=== PATIENT | female | born 1960 | race Caucasian/White ===

== ENCOUNTER 2017-05-14 09:01 | Emergency (ER) | payer BC ==
--- NOTE | 2017-05-14 09:28 | ED ---
Abdominal Pain/Female - HPI Summary HPI Summary: Patient presents to the ED with CC of left sided flank pain since last evening. She states the pain is stabbing and intermittent. At its worse, /. Currently in no pain. She was sent here by [facility]. She denies any urinary symptoms, abdominal pain or groin pain, fevers, sweats or chills. Pain is not better with positioning or rest. Eating and drinking OK. Last BM yesterday morning and normal consistency and color. She has never had this pain before and denies any previous or acute back injury. She denies any midline tenderness to the back or neck pain. Denies abdominal surgeries. PMHx includes HTN and GERD for which she takes medications daily. Patient is a non- smoker and lives with family. VS stable on arrival. Currently in NAD and is not wanting medications for relief. - History of Current Complaint Chief Complaint: EDBackInjuryPain Stated Complaint: LT SIDE FLANK PAIN Time Seen by Provider: 05/14/17 09:11 Hx Obtained From: Patient ?: No Onset/Duration: Sudden Onset Timing: Minutes Severity Initially: Moderate Severity Currently: Moderate Pain Intensity: 8 Pain Scale Used: 0-10 Numeric Location: Flank Character: Sharp Aggravating Factor(s): Nothing Alleviating Factor(s): Nothing Associated Signs and Symptoms: Positive: Negative - Risk Factors Ectopic Risk Factor: Negative Ovarian Torsion Risk Factor: Reproductive Age Allergies/Adverse Reactions: Allergies Allergy/AdvReac Type Severity Reaction Status Date / Time No Known Allergies Allergy Verified 05/23/13 07:25 PMH/Surg Hx/FS Hx/Imm Hx Previously Healthy: Yes Endocrine/Hematology History: Denies: Hx Diabetes Cardiovascular History: Reports: Hx Hypertension Denies: Hx Congestive Heart Failure Respiratory History: Reports: Hx Sleep Apnea - Current CPAP user. GI History: Reports: Hx Gastroesophageal Reflux Disease History: Denies: Hx Renal Disease - Surgical History Surgery Procedure, Year, and Place: C sections; bilat carpal tunnel - Immunization History Date of Tetanus Vaccine: up to date Date of Influenza Vaccine: 2012 Hx Pertussis Vaccination: No Immunizations Up to Date: Unable to Obtain/Confirm Infectious Disease History: Denies: History Other Infectious Disease, Traveled Outside the [place] in Last 30 Days - Social History Occupation: Employed Full-time Lives: With Family Alcohol Use: None Hx Substance Use: No Substance Use Type: Reports: None Hx Tobacco Use: No Smoking Status (MU): Never Smoked Tobacco Do You Chew or Dip Tobacco: No Have You Chewed or Dipped Tobacco in the LAST YEAR: No Have You Smoked in the Last Year: No Review of Systems Constitutional: Negative Eyes: Negative Cardiovascular: Negative Gastrointestinal: Negative Positive: see HPI, flank pain Positive: Arthralgia - left sided flank pain Neurological: Negative Psychological: Normal All Other Systems Reviewed And Are Negative: Yes Physical Exam Triage Information Reviewed: Yes Vital Signs On Initial Exam: Initial Vitals Temp Pulse Resp BP Pulse Ox 98.4 F 66 16 141/87 100 05/14/17 09:03 05/14/17 09:03 05/14/17 09:03 05/14/17 09:03 05/14/17 09:03 Vital Signs Reviewed: Yes Appearance: Positive: Well-Appearing, No Pain Distress, Well-Nourished Skin: Positive: Warm, Skin Color Reflects Adequate Perfusion Head/Face: Positive: Normal Head/Face Inspection Eyes: Positive: EOMI, TIFFANIE, Conjunctiva Clear Neck: Positive: Supple, Nontender, No Lymphadenopathy Respiratory/Lung Sounds: Positive: Clear to Auscultation, Breath Sounds Present Cardiovascular: Positive: Normal, RRR, Pulses are Symmetrical in both Upper and Lower Extremities Abdomen Description: Positive: Nontender, No Organomegaly, Soft, Other:. Negative: CVA Tenderness (R), CVA Tenderness (L), Distended, Guarding, McBurney' s Point Tenderness, Splenomegaly Bowel Sounds: Positive: Present Musculoskeletal: Positive: Normal, Strength/ROM Intact Neurological: Positive: Speech Normal Psychiatric: Positive: Normal AVPU Assessment: Alert Diagnostics - Vital Signs Vital Signs Temp Pulse Resp BP Pulse Ox 05/14/17 09:03 98.4 F 66 16 141/87 100 - Laboratory Result Diagrams: 05/14/17 09:45 05/14/17 09:45 Lab Statement: Any lab studies that have been ordered have been reviewed, and results considered in the medical decision making process. Abdominal Pain Fem Course/Dx - Course Course Of Treatment: Patient evaluated for possible stone. She is sent from [address] [place] [address] d/t pain and abnormal UA with leuks and WBC. Stable condition on arrival and in NAD. VS stable. Pain began last evening, is intermittent lasting seconds to minutes and not better with positioning. UA shows no leuks or WBC or RBC at ED. CT results: IMPRESSION: 1. NO EVIDENCE FOR ACUTE FINDING OR CAUSE FOR THE PATIENT'S ABDOMINAL PAIN IS SEEN. 2. HEPATOMEGALY AND HEPATIC STEATOSIS. no kidney stone identified, however pain is not worse or better with positioning. Considered muscular pain, but d/t abnormal UA and left sided back pain - CT obtained. Discussed treatment options. Provider explained this could be muscular d/t no acute findings on CT. Patient agrees and will trial a period of rest, moist heat, ibuprofen and low dose muscle relaxers as needed. Medications were reveiwed with patient. Encouarged to follow up with PCP or return to ED for worsening symptoms. Return precautions given. Patient understands and agrees with plan. Ok for discharge. - Diagnoses Differential Diagnosis: Positive: Constipation, Diverticulitis, Renal Colic Provider Diagnoses: Muscle cramp Discharge - Discharge Plan Condition: Stable Disposition: HOME Prescriptions: Cyclobenzaprine TAB* [Flexeril TAB*] 10 mg PO BID PRN #10 tab MDD 2 PRN Reason: Spasms Patient Education Materials: Muscle Spasm (ED) Referrals: Valentine Palma MD [Primary Care Provider] - Additional Instructions: Dx. Muscle Strain/ muscle spasms Flexeril: This medication is a muscle relaxant and can help relieve muscle spasms, muscle strain, or pain sensations. Flexeril can cause side effects that may impair your thinking or reactions. Be careful if you drive or do anything that requires you to be awake and alert. Avoid drinking alcohol, which can increase some of the side effects of Flexeril. Ibuprofen 600mg three times daily with meals for discomfort. Return to ED if symptoms worsen or fail to improve, notice worsening swelling, warmth or redness around the joint, develop fever, or pain is uncontrolled with OTC medications. Moist heat to the area for comfort. Warm showers or baths may improve symptoms. It is important to remain mobile as tolerated to prevent stiffening of the joints and delay healing. Follow up with your PCP. If symptoms remain for > 6 weeks, please seek special medical attention from an orthopedic physician.
[2017-05-14 09:59] LABS: Hematocrit 42 % (35-47); Hemoglobin 14.5 g/dl (12.0-16.0); Mean Corpuscular HGB Conc 34 g/dl (31-36); Mean Corpuscular Hemoglobin 32 pg (27-31); Mean Corpuscular Volume 92 fL (80-97); Mean Platelet Volume 9 um3 (7.4-10.4); Red Blood Count 4.59 10^6/ul (4.0-5.4); Red Cell Distribution Width 14 % (10.5-15); White Blood Count 7.5 10^3/ul (3.5-10.8)
[2017-05-14 10:02] LABS: Urine Bilirubin Negative (Negative); Urine Glucose Negative (Negative); Urine Nitrite Negative (Negative)
--- NOTE | 2017-05-14 10:03 | RAD ---
INDICATION: Left-sided flank pain. COMPARISON: There are no prior studies available for comparison. TECHNIQUE: A CT scan of the abdomen and pelvis was performed without intravenous or oral contrast. Contiguous axial sections were obtained from the lung bases through the symphysis pubis. Images were reconstructed in the coronal and sagittal planes. FINDINGS: The lung bases are clear. No pleural effusion is present. The liver is moderately enlarged and decreased in attenuation consistent with fatty infiltration. There is mild sparing along the inferior aspect of the right hepatic lobe. No significant focal abnormality is seen on this noncontrast study. No calcified gallstones are seen. The spleen is within normal limits. The pancreas appears to be within normal limits. The adrenal glands and kidneys are normal in size. No renal calculi or hydronephrosis is seen. No ureteral or bladder calculi are seen. The aorta is normal in caliber with mild calcific plaque present. No significant enlarged retroperitoneal lymph nodes are seen. The stomach, small and large bowel appear nondistended. The appendix is within normal limits. There is mild descending and sigmoid diverticulosis without evidence for diverticulitis. There is a small periumbilical hernia containing fat. The uterus is anteverted and normal in size. No free intraperitoneal air or fluid is seen. No significant focal osseous abnormality is seen. IMPRESSION: 1. NO EVIDENCE FOR ACUTE FINDING OR CAUSE FOR THE PATIENT'S ABDOMINAL PAIN IS SEEN. 2. HEPATOMEGALY AND HEPATIC STEATOSIS.
[2017-05-14 10:21] LABS: Albumin 4.5 g/dL (3.2-5.2); C Reactive Protein 4.17 mg/L (< 5.00); EGFR African American 120.8 (>60); Globulin 2.5 g/dL (2-4); Potassium 3.7 mmol/L (3.5-5.0); Total Bilirubin 0.6 mg/dL (0.2-1.0)
[2017-05-14 10:49] VITALS: BP 139/86
== END 2017-05-14 10:48 | disposition home or self-care (01) ==
LOC: ED 09:01
DX: R25.2 Cramp and spasm (principal); R10.84 Generalized abdominal pain
CPT/HCPCS: 36415; 74176; 80053; 81003; 83690; 85025; 86140; 99282

== ENCOUNTER 2017-11-27 10:16 | Observation (INO) | payer BC ==
[2017-11-27] MEDS ORDERED: Aspirin Low Dose CHEW TAB* 81 MG PO ONE (10:37)
[2017-11-27] MEDS ORDERED: Nitroglycerin TAB 0.4 MG* 0.4 MG TAB ONE (10:37)
[2017-11-27] MEDS ORDERED: Nitroglycerin TAB 0.4 MG* 0.4 MG TAB SL ONE (10:37)
[2017-11-27] MEDS ORDERED: Aspirin Low Dose CHEW TAB* 81 MG ONE (10:37)
[2017-11-27] MEDS: Metoprolol Tartrate TAB* 25 MG PO ONE ×2 (10:48→10:49)
[2017-11-27 11:04] LABS: Urine Appearance Clear; Urine Blood Negative (Negative); Urine Color Straw; Urine Ketones Negative (Negative); Urine Protein Negative (Negative); Urine Specific Gravity 1.003 (1.010-1.030); Urine Urobilinogen Negative (Negative)
[2017-11-27 11:05] LABS: ABS Basophils 0 10^3/ul (0-0.2); ABS Eosinophils 0.1 10^3/ul (0-0.6); ABS Lymphocytes 1.6 10^3/ul (1.0-4.8); ABS Monocytes 0.5 10^3/ul (0-0.8); ABS Neutrophils 5.1 10^3/ul (1.5-7.7); ABS Nucleated RBC 0 10^3/ul; Hematocrit 41 % (35-47); Hemoglobin 14.1 g/dl (12.0-16.0); Lymphocyte % 22.1 % (25-47); Mean Corpuscular HGB Conc 35 g/dl (31-36); Mean Corpuscular Hemoglobin 31 pg (27-31); Mean Corpuscular Volume 90 fL (80-97); Mean Platelet Volume 9 um3 (7.4-10.4); Nucleated Red Blood Cells % 0.1; Platelet Count 254 10^3/ul (150-450); Red Blood Count 4.55 10^6/ul (4.0-5.4); Red Cell Distribution Width 14 % (10.5-15); White Blood Count 7.3 10^3/ul (3.5-10.8)
--- NOTE | 2017-11-27 11:14 | RAD ---
HISTORY: Chest pain COMPARISONS: None VIEWS: 1: frontal portable view of the chest at 11:02 AM FINDINGS: LINES AND TUBES: None. CARDIOMEDIASTINAL SILHOUETTE: The cardiomediastinal silhouette is normal for portable technique. PLEURA: The costophrenic angles are sharp. No pleural abnormalities are noted. LUNG PARENCHYMA: The lungs are clear. ABDOMEN: The upper abdomen is clear. There is no subphrenic gas. BONES AND SOFT TISSUES: No bone or soft tissue abnormalities are noted. IMPRESSION: NO ACTIVE CARDIOPULMONARY DISEASE.
[2017-11-27 11:21] LABS: EGFR Non-African American 86.2 (>60)
[2017-11-27] MEDS ORDERED: Al Hydrox/Mg Hydrox/Simet LIQ* 30 ML UDC PO ONE (12:25)
[2017-11-27] MEDS ORDERED: Lidocaine 2% VISCOUS* 15 ML UDC PO ONE (12:25)
[2017-11-27] MEDS ORDERED: Nitroglycerin 2% OINT* 1 GM PAK ONE (12:30)
[2017-11-27] MEDS ORDERED: Heparin DRIP 25,000 UNITS(*) 25,000 UNITS/500 ML BAG IVPB SCH (12:30)
[2017-11-27] MEDS: Nitroglycerin 2% OINT* 1 GM PAK TOPICAL SCH ×2 (12:33→14:38)
--- NOTE | 2017-11-27 12:33 | ED ---
Marta Faust Gabriel, scribed for Ashish Ansari MD on 11/27/17 at 1039 . HPI Chest Pain - HPI Summary HPI Summary: This patient is a 57 year old F presenting to [facility] accompanied by her with a chief complaint of chest pressure since yesterday afternoon while at rest. The patient rates the intermittent pain 4/10 in severity. Patient reports SOB. Pt states she has had similar symptoms with her GERD.Hx HLD and HTN. - History of Current Complaint Chief Complaint: EDChestPainROMI Time Seen by Provider: 11/27/17 10:29 Hx Obtained From: Patient Onset/Duration: Started Days Ago - 1, Still Present Timing: Constant Initial Severity: Mild Current Severity: Mild Pain Intensity: 4 Pain Scale Used: 0-10 Numeric Chest Pain Location: Diffuse Chest Pain Radiates: No Character: Pressure/Squeezing Associated Signs and Symptoms: Positive: Other: - SOB - Allergy/Home Medications Allergies/Adverse Reactions: Allergies Allergy/AdvReac Type Severity Reaction Status Date / Time No Known Allergies Allergy Verified 11/27/17 10:26 Home Medications: Home Medications Calcium/Magnesium/Zinc [Calcium/Magnesium/Zinc] 1 tab PO BID 11/27/17 [History Confirmed 11/27/17] Iron 18 mg PO DAILY 11/27/17 [History Confirmed 11/27/17] LoraTADine TAB(NF) [Claritin 10 MG TAB(NF)] 10 mg PO DAILY 11/27/17 [History Confirmed 11/27/17] Multivitamins/Minerals TAB* [Theragran/minerals TAB*] 1 tab PO DAILY 11/27/17 [ History Confirmed 11/27/17] Rosuvastatin (NF) [Crestor (NF)] 5 mg PO DAILY 11/27/17 [History Confirmed 11/27] PMH/Surg Hx/FS Hx/Imm Hx Endocrine/Hematology History: Denies: Hx Diabetes Cardiovascular History: Reports: Hx Hypercholesterolemia, Hx Hypertension Denies: Hx Congestive Heart Failure Respiratory History: Reports: Hx Sleep Apnea - Current CPAP user. GI History: Reports: Hx Gastroesophageal Reflux Disease History: Denies: Hx Renal Disease - Surgical History Surgery Procedure, Year, and Place: C sections; bilat carpal tunnel - Immunization History Date of Tetanus Vaccine: up to date Date of Influenza Vaccine: 2012 Infectious Disease History: No Infectious Disease History: Denies: History Other Infectious Disease, Traveled Outside the [place] in Last 30 Days - Family History Known Family History: Negative: Cardiac Disease, Hypertension, Diabetes - Social History Lives: With Family Alcohol Use: None Hx Substance Use: No Substance Use Type: Reports: None Hx Tobacco Use: No Smoking Status (MU): Never Smoked Tobacco Have You Smoked in the Last Year: No Review of Systems Positive: Chest Pain Positive: Shortness Of Breath All Other Systems Reviewed And Are Negative: Yes Physical Exam - Summary Physical Exam Summary: VITAL SIGNS: Reviewed. GENERAL: Patient is a well-developed and nourished female who is lying comfortable in the stretcher. Patient is not in any acute respiratory distress. HEAD AND FACE: No signs of trauma. No ecchymosis, hematomas or skull depressions. No sinus tenderness. EYES: PERRLA, EOMI x 2, No injected conjunctiva, no nystagmus. EARS: Hearing grossly intact. Ear canals and tympanic membranes are within normal limits. MOUTH: Oropharynx within normal limits. NECK: Supple, trachea is midline, no adenopathy, no JVD, no carotid bruit, no c- spine tenderness, neck with full ROM. CHEST: Symmetric, no tenderness at palpation LUNGS: Clear to auscultation bilaterally. No wheezing or crackles. CVS: Regular rate and rhythm, S1 and S2 present, no murmurs or gallops appreciated. ABDOMEN: Soft, non-tender. No signs of distention. No rebound no guarding, and no masses palpated. Bowel sounds are normal. EXTREMITIES: FROM in all major joints, no edema, no cyanosis or clubbing. NEURO: Alert and oriented x 3. No acute neurological deficits. Speech is normal and follows commands. SKIN: Dry and warm Triage Information Reviewed: Yes Vital Signs On Initial Exam: Initial Vitals Temp Pulse Resp BP Pulse Ox 99.4 F 103 16 152/92 98 11/27/17 10:20 11/27/17 10:20 11/27/17 10:20 11/27/17 10:20 11/27/17 10:20 Vital Signs Reviewed: Yes Diagnostics - Vital Signs Vital Signs Temp Pulse Resp BP Pulse Ox 11/27/17 10:20 99.4 F 103 16 152/92 98 - Laboratory Lab Results: Lab Results 03/10/18 03/10/18 03/10/18 Range/Units 10:42 10:42 10:42 WBC (3.5-10.8) 10^3/ul RBC (4.0-5.4) 10^6/ul Hgb (12.0-16.0) g/dl Hct (35-47) % MCV (80-97) fL MCH (27-31) pg MCHC (31-36) g/dl RDW (10.5-15) % Plt Count (150-450) 10^3/ul MPV (7.4-10.4) um3 Neut % (Auto) (38-83) % Lymph % (Auto) (25-47) % [place] % (Auto) (0-7) % Eos % (Auto) (0-6) % Baso % (Auto) (0-2) % Absolute Neuts (auto) (1.5-7.7) 10^3/ul Absolute Lymphs (auto) (1.0-4.8) 10^3/ul Absolute Monos (auto) (0-0.8) 10^3/ul Absolute Eos (auto) (0-0.6) 10^3/ul Absolute Basos (auto) (0-0.2) 10^3/ul Absolute Nucleated RBC 10^3/ul Nucleated RBC % Sodium Pending Potassium 3.6 (3.5-5.0) mmol/L Chloride 101 (101-111) mmol/L Carbon Dioxide 27 (22-32) mmol/L Anion Gap Pending BUN 9 (6-24) mg/dL Creatinine 0.70 (0.51-0.95) mg/dL Est GFR ( Amer) 110.9 (>60) Est GFR (Non-Af Amer) 86.2 (>60) BUN/Creatinine Ratio 12.9 (8-20) Glucose 172 H (70-100) mg/dL Calcium 9.9 (8.6-10.3) mg/dL Magnesium 2.1 (1.9-2.7) mg/dL Total Bilirubin 0.60 (0.2-1.0) mg/dL AST 19 (13-39) U/L ALT 29 (7-52) U/L Alkaline Phosphatase 66 (34-104) U/L Total Creatine Kinase 66 (10-223) U/L CK-MB (CK-2) 1.5 (0.6-6.3) ng/mL Myoglobin 18.3 (14.3-65.8) ng/mL Troponin I 0.00 (<0.04) ng/mL B-Natriuretic Peptide 25 ( - 100) pg/mL Total Protein 6.9 (6.4-8.9) g/dL Albumin 4.5 (3.2-5.2) g/dL Globulin 2.4 (2-4) g/dL Albumin/Globulin Ratio 1.9 (1-3) TSH 1.31 (0.34-5.60) mcIU/mL Urine Color Straw Urine Appearance Clear Urine pH 6.0 (5-9) Ur Specific [place] 1.003 L (1.010-1.030) Urine Protein Negative (Negative) Urine Ketones Negative (Negative) Urine Blood Negative (Negative) Urine Nitrate Negative (Negative) Urine Bilirubin Negative (Negative) Urine Urobilinogen Negative (Negative) Ur Leukocyte Esterase Negative (Negative) Urine Glucose Negative (Negative) 11/27/17 Range/Units 10:42 WBC 7.3 (3.5-10.8) 10^3/ul RBC 4.55 (4.0-5.4) 10^6/ul Hgb 14.1 (12.0-16.0) g/dl Hct 41 (35-47) % MCV 90 (80-97) fL MCH 31 (27-31) pg MCHC 35 (31-36) g/dl RDW 14 (10.5-15) % Plt Count 254 (150-450) 10^3/ul MPV 9 (7.4-10.4) um3 Neut % (Auto) 69.3 (38-83) % Lymph % (Auto) 22.1 L (25-47) % [place] % (Auto) 7.1 H (0-7) % Eos % (Auto) 1.0 (0-6) % Baso % (Auto) 0.5 (0-2) % Absolute Neuts (auto) 5.1 (1.5-7.7) 10^3/ul Absolute Lymphs (auto) 1.6 (1.0-4.8) 10^3/ul Absolute Monos (auto) 0.5 (0-0.8) 10^3/ul Absolute Eos (auto) 0.1 (0-0.6) 10^3/ul Absolute Basos (auto) 0 (0-0.2) 10^3/ul Absolute Nucleated RBC 0 10^3/ul Nucleated RBC % 0.1 Sodium Potassium (3.5-5.0) mmol/L Chloride (101-111) mmol/L Carbon Dioxide (22-32) mmol/L Anion Gap BUN (6-24) mg/dL Creatinine (0.51-0.95) mg/dL Est GFR ( Amer) (>60) Est GFR (Non-Af Amer) (>60) BUN/Creatinine Ratio (8-20) Glucose (70-100) mg/dL Calcium (8.6-10.3) mg/dL Magnesium (1.9-2.7) mg/dL Total Bilirubin (0.2-1.0) mg/dL AST (13-39) U/L ALT (7-52) U/L Alkaline Phosphatase (34-104) U/L Total Creatine Kinase (10-223) U/L CK-MB (CK-2) (0.6-6.3) ng/mL Myoglobin (14.3-65.8) ng/mL Troponin I (<0.04) ng/mL B-Natriuretic Peptide ( - 100) pg/mL Total Protein (6.4-8.9) g/dL Albumin (3.2-5.2) g/dL Globulin (2-4) g/dL Albumin/Globulin Ratio (1-3) TSH (0.34-5.60) mcIU/mL Urine Color Urine Appearance Urine pH (5-9) Ur Specific [place] (1.010-1.030) Urine Protein (Negative) Urine Ketones (Negative) Urine Blood (Negative) Urine Nitrate (Negative) Urine Bilirubin (Negative) Urine Urobilinogen (Negative) Ur Leukocyte Esterase (Negative) Urine Glucose (Negative) Result Diagrams: 11/27/17 10:42 11/27/17 10:42 Lab Statement: Any lab studies that have been ordered have been reviewed, and results considered in the medical decision making process. - Radiology CXR Radiology Interpretation Completed By: Radiologist - no active cardiopulmonary disease ED physician has reviewed this radiology report. - EKG 1029 Cardiac Rate: NL EKG Rhythm: Sinus Rhythm - at 93 BPM EKG Interpretation: ST depression from V2-V6, No ST elevations Chest Pain Course/Dx - Course Assessment/Plan: In the ED course an IV access was obtained. Patient was placed in a paraoptometric. Patient was given Aspirin, nitroglycerin and Lopressor. Labs without any significant abnormality except for. Troponin #1: 0.00. EKG shows a NSR at 93 BPM w/o ST elevations. It has ST depression. CXR impression : No acute pathology. Because the abnormal EKG. I discuss my physical exam, findings and test results with Dr. Hunt from the hospitalist services and he agrees to admit patient to his services. Patient is hemodynamically stable alert and oriented x 3. - Chest Pain Differential Diagnosis/HQI/PQRI: Acute [place], ACS, Angina, CHF, Chest Wall, GI Disease, Pulmonary Edema - Diagnoses Provider Diagnoses: Chest pain r/o ACS - Provider Notifications Discussed Care Of Patient With: Shaan Hunt Time Discussed With Above Provider: 12:04 Instructed by Provider To: Admit As Inpatient Discharge - Discharge Plan Condition: Fair Disposition: ADMITTED TO [facility] Referrals: Valentine Palma MD [Primary Care Provider] - The documentation as recorded by the Marta benton Gabriel accurately reflects the service I personally performed and the decisions made by me, Ashish Ansari MD.
[2017-11-27] MEDS: Metoprolol Tartrate TAB* 25 MG PO SCH ×2 (12:45→20:37)
[2017-11-27] MEDS: Heparin VIAL(*) 5000 UNITS/ML VIAL (FIVE THOUSAND) IV SCH ×2 (14:47→21:22)
--- NOTE | 2017-11-27 16:16 | HP ---
CC: Dr. Palma; Dr. Casey * HISTORY AND PHYSICAL: DATE OF ADMISSION: 11/27/17 PRIMARY CARE PROVIDER: Dr. Palma. ATTENDING PHYSICIAN WHILE IN THE HOSPITAL: Shaan Hunt MD * (report dictated by Carlos Duque NP). CONSULTING VENUE ATTENDANT: Dr. Casey. CHIEF COMPLAINT: Chest pain. HISTORY OF PRESENT ILLNESS: Ms. Zaragoza is a 57-year-old female patient. She has a history of hypertension, hyperlipidemia, and IQRA. She comes in to our ER today stating that yesterday evening she had a 20 to 30-minute episode of nonexertional epigastric pain going up into her chest and to her jaw. She described it as a pressure, burning sensation. She thought it was her GERD. She actually took an ibuprofen, which did not help her; the pain eventually subsided. She was belching, but the belching did not help her. She woke up this morning, was feeling initially okay. She started having breakfast and then again, she started noting she had chest pressure, epigastric discomfort. She had tightness lasting for about again 20 to 30 minutes. She states she had hot flashes. She states she did not feel short of breath with this. She states that she has never had chest discomfort like this with exertion and she had no recent fevers, chills, vomiting, diarrhea, or any abdominal pain. She was concerned because the symptoms were lasting longer than what she was accustomed to. Her acid reflux, she stated typically it will last 5 minutes, but these were much longer. She decided to come in to the ER today to be evaluated. She came in, it was noted that she did have some EKG changes and because of this, we were asked to evaluate her admission. PAST MEDICAL HISTORY: Significant for: 1. Hypertension. 2. IQRA. 3. Hyperlipidemia. PAST SURGICAL HISTORY: 1. She has had carpal tunnel release. 2. Left total knee replacement, which was done in May. 3. She has a history of . 4. Tonsillectomy. MEDICATIONS: Home meds include: 1. Crestor 5 mg daily. 2. Avalide 1 tablet daily. 3. Claritin 10 mg daily. 4. [place]-3 1000 mg p.o. daily. 5. Multivitamin 1 tablet daily. 6. Iron 18 mg daily. 7. Calcium, mag, and zinc 1 tablet p.o. b.i.d. 8. Nexium 40 mg daily. 9. Dymista 1 spray both nares daily. ALLERGIES TO MEDICATIONS: Include no known drug allergies. FAMILY HISTORY: Both her parents have diabetes and hypertension. SOCIAL HISTORY: She does not smoke. She does not drink. Surrogate decision maker is her . REVIEW OF SYSTEMS: There is no documented fever. She denies having any significant weight change. There was no double vision. There is no ear discharge. She denies having any rhinorrhea. There is no sore throat. No thyroid enlargement. There was chest pain from HPI. There was no orthopnea. No nocturnal dyspnea. She has no abdominal pain. There is no nausea. No vomiting. No dysuria. No frequency. There was no seizure. No loss of consciousness. No pruritus and no skin ulcerations. Review of 14 systems was completed, all others negative. PHYSICAL EXAMINATION GENERAL: At this time, Ms. Zaragoza is a 57-year-old female patient. She is sitting in the ED stretcher. She appears to be well nourished. She does not appear to be in any acute distress. VITAL SIGNS: Blood pressure 147/90 with a pulse of 84, respirations 18, O2 saturations 96%, temperature was 100.4. HEENT: Head: Atraumatic, normocephalic. Eyes: EOMs are intact. Sclerae anicteric and not pale. Throat: Oral mucosa appears to be moist. No oropharyngeal erythema. NECK: Supple. LUNGS: Clear to auscultation bilaterally. No wheezes, rales, or rhonchi. HEART: Sounds S1 and S2. Regular rate and rhythm. No murmurs, rubs, or gallops. ABDOMEN: Soft, flat, nontender. Bowel sounds were present. EXTREMITIES: Pulses were 2+ throughout. She is moving all 4 extremities with 5 /5 strength. NEUROLOGIC: The patient is awake. She is alert. She is oriented x3. Tongue is midline. Hr Receptionist were equal. She had no gross focal deficits. SKIN: Intact. LABORATORY DATA/DIAGNOSTIC STUDIES: The labs today revealed a WBC of 7.3, RBC of 4.55, hemoglobin of 14.1, hematocrit of 41, platelet count 254. Sodium was 136, was potassium 3.6, chloride of 101, bicarb was 27, BUN 9, creatinine of 0.70, glucose 172. Calcium was 9.9. Mag 2.1. Total bili is 0.6, AST 19, ALT 29, alk phos 66. CK 56, CK-MB 1.5, myoglobulin 18.3. Troponin 0. BNP was 25. TSH was normal at 1.31. Albumin was 4.5. Urine was obtained, it was negative. The patient did have a chest x-ray obtained today, which revealed active cardiopulmonary disease. She had an EKG obtained today. The initial EKG showed a normal sinus rhythm with a rate of 93. She had ST depression, which appeared to be in the anterolateral leads V2 through V6. When we reviewed the previous EKG greater than some 4 years ago, these depressions were not there. I did review her EKG which now actually appears to be improved. Old medical records were reviewed. ASSESSMENT AND PLAN: Ms. Zaragoza is a 57-year-old female patient coming in to the ED today with complaints of chest discomfort with EKG changes. We were asked to evaluate for admission. She will be admitted under observation status for: 1. Chest pain with EKG changes. At this point, she had ST depression when she came in and it now appears to be resolved. I am concerned the symptoms she had may represent ACS. I did touch base with Dr. Casey. The plan will be to go ahead and put the patient on aspirin, statin, which she is already taking, beta- zackary and in addition to this, heparin, and nitrates. She is chest pain-free currently. We will get an EKG in the morning, cycle her troponins, stress test , place the patient on telemetry and we will continue to follow and again Dr. Casey will be evaluating this. 2. Hypertension. Continue meds as prescribed with the exception of hydrochlorothiazide. 3. Hyperlipidemia. Continue statin therapy. 4. Obstructive sleep apnea. I have ordered CPAP for her. 5. DVT prophylaxis. She is going to be on a heparin drip. 6. Code status. She is a full code. 7. Fluids, electrolytes, and nutrition. She can have a heart-healthy diet and then she will be n.p.o. for the stress test on Wednesday. CODE STATUS: She is a full code TIME SPENT: On this admission was 60 minutes, greater than half the time was spent [id number] with the patient obtaining my history and physical, other half the time was spent going over the plan of care with the patient and implementing plan of care. I did discuss the plan of care with my attending, Dr. Hunt; he is in agreement. CARLOS DUQUE NP [id number]/CPS #: [id number] TIM
[2017-11-27] MEDS: Acetaminophen TAB* 325 MG PO PRN (20:19)
[2017-11-27] MEDS ORDERED: Metoprolol Tartrate TAB* 25 MG PO SCH (21:00)
[2017-11-28 04:48] LABS: ABS Basophils 0.1 10^3/ul (0-0.2); ABS Eosinophils 0.2 10^3/ul (0-0.6); ABS Lymphocytes 4.3 10^3/ul (1.0-4.8); ABS Monocytes 0.8 10^3/ul (0-0.8); ABS Nucleated RBC 0 10^3/ul; Eosinophil % 2.1 % (0-6); Hematocrit 37 % (35-47); Lymphocyte % 37.6 % (25-47); Mean Corpuscular HGB Conc 35 g/dl (31-36); Mean Corpuscular Hemoglobin 31 pg (27-31); Mean Corpuscular Volume 89 fL (80-97); Mean Platelet Volume 9 um3 (7.4-10.4); Nucleated Red Blood Cells % 0; Platelet Count 244 10^3/ul (150-450); Red Blood Count 4.15 10^6/ul (4.0-5.4); Red Cell Distribution Width 14 % (10.5-15); White Blood Count 11.4 10^3/ul (3.5-10.8)
[2017-11-28 05:02] LABS: INR 0.91 (0.77-1.02)
[2017-11-28 05:06] LABS: EGFR Non-African American 90.7 (>60)
[2017-11-28] MEDS ORDERED: Omeprazole CAP* 20 MG PO SCH (07:30)
[2017-11-28] MEDS ORDERED: Aspirin Low Dose CHEW TAB* 81 MG PO SCH (09:00)
[2017-11-28] MEDS ORDERED: IRBESARTAN 150 MG PO SCH (09:00)
[2017-11-28] MEDS ORDERED: Atorvastatin* 10 MG TAB PO SCH (09:00)
--- NOTE | 2017-11-28 09:13 | PN ---
Subjective Date of Service: 11/28/17 Interval History: No overnight events. States she has not had any further chest pain. States when she had her pre-op eval for her knee surgery back in 06/06 - they did EKG then, there was some abnormality at that time. Was sent for an echo and it was normal per patient. States symptoms felt similar to her reflux Objective Active Medications: Acetaminophen (Tylenol Tab*) 650 mg PO Q4H PRN PRN Reason: FEVER/PAIN Last Admin: 11/27/17 20:19 Dose: 650 mg Aspirin (Aspirin Low Dose Tab*) 81 mg PO DAILY [facility] Atorvastatin Calcium (Lipitor*) 10 mg PO DAILY [facility] PRN Reason: Protocol Heparin Sodium (Porcine) (Heparin Vial(*)) 0 units IV .PER PROTOCOL [facility] PRN Reason: Protocol Last Admin: 11/27/17 21:22 Dose: 2,000 units Heparin Sodium/Dextrose (Heparin Drip 25,000 Units(*)) 25,000 units in 500 mls @ 0 mls/hr IVPB PER RATE BERENICE; Per Protocol PRN Reason: Protocol Last Admin: 11/27/17 14:47 Dose: 18 mls/hr Irbesartan (Avapro (Nf)) 300 mg PO DAILY [facility] Metoprolol Tartrate (Lopressor Tab*) 25 mg PO BID [facility] Last Admin: 11/27/17 20:37 Dose: 25 mg Nitroglycerin (Nitroglycerin 2% Oint*) 0.5 inch TOPICAL 0800,1400 [facility] PRN Reason: Protocol Last Admin: 11/27/17 14:38 Dose: Not Given Omeprazole (Prilosec Cap*) 20 mg PO 0730 [facility] PRN Reason: Protocol Vital Signs - 8 hr 11/28/17 11/28/17 11/28/17 03:59 04:52 07:26 Temperature 98.0 F 98.4 F Pulse Rate 69 72 Respiratory 16 16 Rate Blood Pressure 131/79 132/73 (mmHg) O2 Sat by Pulse 95 96 95 Oximetry Oxygen Devices in Use Now: None Appearance: NAD Ears/Nose/Mouth/Throat: NL Teeth, Lips, Gums, Mucous Membranes Moist Neck: Trachea Midline Respiratory: Symmetrical Chest Expansion and Respiratory Effort, Clear to Auscultation Cardiovascular: NL Sounds; No Murmurs; No JVD, RRR Abdominal: NL Sounds; No Tenderness; No Distention, No Hepatosplenomegaly Extremities: No Edema Neurological: Alert and Oriented x 3, NL Muscle Strength and Tone Result Diagrams: 11/28/17 04:39 11/28/17 04:39 Additional Lab and Data: Lab Results 11/27/17 11/27/17 11/27/17 Range/Units 10:42 10:42 10:42 WBC (3.5-10.8) 10^3/ul RBC (4.0-5.4) 10^6/ul Hgb (12.0-16.0) g/dl Hct (35-47) % MCV (80-97) fL MCH (27-31) pg MCHC (31-36) g/dl RDW (10.5-15) % Plt Count (150-450) 10^3/ul MPV (7.4-10.4) um3 Neut % (Auto) (38-83) % Lymph % (Auto) (25-47) % [place] % (Auto) (0-7) % Eos % (Auto) (0-6) % Baso % (Auto) (0-2) % Absolute Neuts (auto) (1.5-7.7) 10^3/ul Absolute Lymphs (auto) (1.0-4.8) 10^3/ul Absolute Monos (auto) (0-0.8) 10^3/ul Absolute Eos (auto) (0-0.6) 10^3/ul Absolute Basos (auto) (0-0.2) 10^3/ul Absolute Nucleated RBC 10^3/ul Nucleated RBC % Sodium Pending Potassium 3.6 (3.5-5.0) mmol/L Chloride 101 (101-111) mmol/L Carbon Dioxide 27 (22-32) mmol/L Anion Gap Pending BUN 9 (6-24) mg/dL Creatinine 0.70 (0.51-0.95) mg/dL Est GFR ( Amer) 110.9 (>60) Est GFR (Non-Af Amer) 86.2 (>60) BUN/Creatinine Ratio 12.9 (8-20) Glucose 172 H (70-100) mg/dL Calcium 9.9 (8.6-10.3) mg/dL Magnesium 2.1 (1.9-2.7) mg/dL Total Bilirubin 0.60 (0.2-1.0) mg/dL AST 19 (13-39) U/L ALT 29 (7-52) U/L Alkaline Phosphatase 66 (34-104) U/L Total Creatine Kinase 66 (10-223) U/L CK-MB (CK-2) 1.5 (0.6-6.3) ng/mL Myoglobin 18.3 (14.3-65.8) ng/mL Troponin I 0.00 (<0.04) ng/mL B-Natriuretic Peptide 25 ( - 100) pg/mL Total Protein 6.9 (6.4-8.9) g/dL Albumin 4.5 (3.2-5.2) g/dL Globulin 2.4 (2-4) g/dL Albumin/Globulin Ratio 1.9 (1-3) TSH 1.31 (0.34-5.60) mcIU/mL Urine Color Straw Urine Appearance Clear Urine pH 6.0 (5-9) Ur Specific [place] 1.003 L (1.010-1.030) Urine Protein Negative (Negative) Urine Ketones Negative (Negative) Urine Blood Negative (Negative) Urine Nitrate Negative (Negative) Urine Bilirubin Negative (Negative) Urine Urobilinogen Negative (Negative) Ur Leukocyte Esterase Negative (Negative) Urine Glucose Negative (Negative) 11/27/17 Range/Units 10:42 WBC 7.3 (3.5-10.8) 10^3/ul RBC 4.55 (4.0-5.4) 10^6/ul Hgb 14.1 (12.0-16.0) g/dl Hct 41 (35-47) % MCV 90 (80-97) fL MCH 31 (27-31) pg MCHC 35 (31-36) g/dl RDW 14 (10.5-15) % Plt Count 254 (150-450) 10^3/ul MPV 9 (7.4-10.4) um3 Neut % (Auto) 69.3 (38-83) % Lymph % (Auto) 22.1 L (25-47) % [place] % (Auto) 7.1 H (0-7) % Eos % (Auto) 1.0 (0-6) % Baso % (Auto) 0.5 (0-2) % Absolute Neuts (auto) 5.1 (1.5-7.7) 10^3/ul Absolute Lymphs (auto) 1.6 (1.0-4.8) 10^3/ul Absolute Monos (auto) 0.5 (0-0.8) 10^3/ul Absolute Eos (auto) 0.1 (0-0.6) 10^3/ul Absolute Basos (auto) 0 (0-0.2) 10^3/ul Absolute Nucleated RBC 0 10^3/ul Nucleated RBC % 0.1 Sodium Potassium (3.5-5.0) mmol/L Chloride (101-111) mmol/L Carbon Dioxide (22-32) mmol/L Anion Gap BUN (6-24) mg/dL Creatinine (0.51-0.95) mg/dL Est GFR ( Amer) (>60) Est GFR (Non-Af Amer) (>60) BUN/Creatinine Ratio (8-20) Glucose (70-100) mg/dL Calcium (8.6-10.3) mg/dL Magnesium (1.9-2.7) mg/dL Total Bilirubin (0.2-1.0) mg/dL AST (13-39) U/L ALT (7-52) U/L Alkaline Phosphatase (34-104) U/L Total Creatine Kinase (10-223) U/L CK-MB (CK-2) (0.6-6.3) ng/mL Myoglobin (14.3-65.8) ng/mL Troponin I (<0.04) ng/mL B-Natriuretic Peptide ( - 100) pg/mL Total Protein (6.4-8.9) g/dL Albumin (3.2-5.2) g/dL Globulin (2-4) g/dL Albumin/Globulin Ratio (1-3) TSH (0.34-5.60) mcIU/mL Urine Color Urine Appearance Urine pH (5-9) Ur Specific [place] (1.010-1.030) Urine Protein (Negative) Urine Ketones (Negative) Urine Blood (Negative) Urine Nitrate (Negative) Urine Bilirubin (Negative) Urine Urobilinogen (Negative) Ur Leukocyte Esterase (Negative) Urine Glucose (Negative) Microbiology and Other Data: Microbiology 11/27/17 12:45 Influenza Types A,B Antigen ([facility]) - Final Nasopharyngeal Specimen received for Influenza A/B Molecular testing Assess/Plan/Problems-Billing Assessment: This is a 57 yr old with HTN, HLD, IQRA and GERD who presented to the ED with chest pain, had ST depression on EKG on admission. Initial work up unremarkable. Seen by Dr. Casey, recommended discharge with outpatient stress test. See full discharge summary for complete details - Patient Problems (1) Chest pain Current Visit: Yes Status: Acute Code(s): R07.9 - CHEST PAIN, UNSPECIFIED SNOMED Code(s): 52820876 Comment: A. No further episodes. Initial work up unremarkable. Repeat EKG shows NSR with no ST depression Plan Will follow up with cards but suspect d/c heparin drip Stress test in AM/NPO after MDN Request records of EKG from [facility] from 06/06 Will continue ASA and Metoprolol (2) Hypertension Current Visit: Yes Status: Acute Code(s): I10 - ESSENTIAL (PRIMARY) HYPERTENSION SNOMED Code(s): 92098893 Comment: A/P controlled - continue home regimen (3) Hyperlipidemia Current Visit: Yes Status: Acute Code(s): E78.5 - HYPERLIPIDEMIA, UNSPECIFIED SNOMED Code(s): 67297782 Comment: A/P - controlled - continue home regimen (4) Sleep apnea Current Visit: No Status: Active Code(s): G47.30 - SLEEP APNEA, UNSPECIFIED SNOMED Code(s): 12638581 Comment: Current CPAP user. (5) DVT prophylaxis Current Visit: Yes Status: Acute Code(s): IBS6050 - SNOMED Code(s): 022206673 Comment: On heparin drip for now (6) Full code status Current Visit: Yes Status: Acute Code(s): Z78.9 - OTHER SPECIFIED HEALTH STATUS SNOMED Code(s): 950978551
[2017-11-28] MEDS: Metoprolol Tartrate TAB* 25 MG PO SCH (10:05)
[2017-11-28] MEDS: Nitroglycerin 2% OINT* 1 GM PAK TOPICAL SCH (10:06)
[2017-11-28] MEDS: Acetaminophen TAB* 325 MG PO PRN (10:13)
[2017-11-28 11:15] VITALS: BP 124/79
--- NOTE | 2017-11-28 19:30 | CONS ---
CC: Dr. Palma * CARDIOLOGY CONSULTATION: DATE OF CONSULT: 11/28/17 INDICATION FOR CONSULTATION: Chest pain. HISTORY OF PRESENT ILLNESS: The patient is a 57-year-old female with a history of hypertension and hyperlipidemia, who came to the emergency room because of chest pain. The patient states that on Wednesday she started having epigastric discomfort. She thought it was related to her gastroesophageal reflux disease; however, was slightly different in quality. It did radiate up into her jaw. It lasted for about 30 minutes and then resolved. On Wednesday morning, she had the same discomfort, again it lasted for about 30 minutes and subsided. At that point, the patient decided to come to the emergency room for evaluation. On arrival to the emergency room, her EKG showed normal sinus rhythm with slight ST segment depressions with upsloping ST segment depression, no definitive ischemic changes. The patient was admitted to the hospital. The patient ruled out for myocardial infarction. She had troponin levels x3 that were 0. Her EKG showed no significant changes. In speaking with the patient this morning, she has no return of her symptoms. PAST MEDICAL HISTORY: Significant for hypertension, sleep apnea, hyperlipidemia. PAST SURGICAL HISTORY: Carpal tunnel surgery, total knee replacement done this past May, history of tonsillectomy. OUTPATIENT MEDICATIONS: 1. Crestor 5 mg a day. 2. Avalide 1 tablet a day. 3. Claritin 10 mg a day. 4. Multivitamin a day. 5. Iron tablets. ALLERGIES: No known drug allergies. SOCIAL HISTORY: The patient denies tobacco use, denies alcohol use. She is . FAMILY HISTORY: Both her parents have diabetes and hypertension. PHYSICAL EXAM: Height is 5 feet 5 inches, weight is 226 pounds, temperature 98.5, heart rate is 81, respiratory rate is 18, blood pressure 120/65, oxygen saturation 96% on room air. Sclerae anicteric. Oropharynx is pink without erythema. Carotids are 2+ without bruits. JVD is normal. Thyroid is normal. Cardiac Exam: S1, S2 without any murmurs, rubs, or gallops. Lungs are clear to auscultation bilaterally. There is no dullness to percussion. Abdomen is soft , nontender, nondistended with normoactive bowel sounds. No hepatosplenomegaly. Extremities show no edema. She has 2+ pulses throughout. The patient is awake, alert, and oriented. She moves all 4 extremities equally. DIAGNOSTIC STUDIES/LAB DATA: CBC within normal limits. Chemistries within normal limits. Troponins are negative x3. TSH is 1.3. Total cholesterol 126, LDL cholesterol of 48. EKG demonstrates normal sinus rhythm with normal axis and intervals. IMPRESSION AND PLAN: This is a 57-year-old female who was admitted to the hospital because of 2 episodes of chest pain. Again, as described above, they were similar to her reflux symptoms; however, they did radiate up into her jaw. The patient is ruled for myocardial infarction. She does not have any high risk EKG changes. She has been pain-free for more than 24 hours. At this point , I think the patient can be discharged from the hospital and have an outpatient stress test with me either Wednesday or Wednesday of this week. The patient will continue on aspirin a day. Her other medications will remain the same. Further recommendations pending results of her stress test. [id number]/[facility] #: [id number] TIM
--- NOTE | 2017-11-29 03:05 | DS ---
CC: Dr. Valentine Palma * DISCHARGE SUMMARY: DATE OF ADMISSION: 11/27/17 DATE OF DISCHARGE: 11/28/17 PRIMARY CARE PHYSICIAN: Dr. Valentine Palma. PRINCIPAL DIAGNOSIS: Chest pain. SECONDARY DIAGNOSES: 1. Hypertension. 2. Obstructive sleep apnea. 3. Hyperlipidemia. MEDICATIONS ON DISCHARGE: New medication: Aspirin 81 mg p.o. daily. Remaining medications are unchanged as follows: 1. Crestor 5 mg p.o. daily. 2. Avalide 1 tab daily. 3. Claritin 10 mg p.o. daily. 4. [place]-3 1000 mg p.o. daily. 5. Multivitamin p.o. daily. 6. Iron 18 mg daily. 7. Calcium, mag, and zinc 1 tablet p.o. b.i.d. 8. Nexium 40 mg daily. 9. Dymista 1 spray both nares daily. HOSPITAL COURSE: Please refer to complete medical records for details through summary. This is a 57-year-old female with past medical history of hypertension , hyperlipidemia and obstructive sleep apnea, who presented to the emergency room on the 11/27/17 with intermittent chest pain. She states she gets a lot of acid reflux, this was similar to her reflux in the past. It started when she was at rest, it is felt to be epigastric in nature, radiating up to her chest and her jaw, lasted about 20 to 30 minutes. She did take an ibuprofen, which started improve. This was a day prior to admission. On the morning of her admission, she was feeling okay. While having breakfast, again she noticed this epigastric chest pain and discomfort lasting again for 20 to 30 minutes and she states she also had some hot flashes. No associated shortness of breath. No nausea. No diaphoresis. In the emergency room, there was concern for some subtle ST depression on her admitting EKG. They admitted her for rule out acute coronary syndrome and started her on a heparin drip and Cardiology was contacted. She had no further episodes of chest pain throughout her admission and her ER visit. Her troponins were 0 x3. Her cholesterol panel, triglycerides 184, LDL 48, HDL 40.9 and her electrolytes were unremarkable. Her chest x-ray on admission showed no active cardiopulmonary disease and as mentioned, she had some subtle ST depression in the lateral leads, which resolved on repeat EKG x2. Dr. Casey evaluated and he felt that with no chest pain throughout her entire admission here with an unremarkable workup including negative troponin and normal EKG that she could go home and has an outpatient stress test. The patient is going to be discharged to home. Discussed no exertional activity until she has had her stress test to continue the baby aspirin as prescribed and her home regimen as she has been directed to take and that outpatient stress test has been ordered and they will contact her to set her up and with instructions to follow and that she should continue on a heart- healthy diet as well and followup with Dr. Palma and Cardiology will be contacted if she does have an abnormal stress test. The patient is aware of the results and instructions and the discharge plan with no questions. PATIENT TIME: Greater than 30 minutes was spent doing the discharge, more than half the time spent in direct patient contact. [id number]/[facility] #: [id number] TIM
== END 2017-11-28 12:25 | disposition home or self-care (01) ==
LOC: ED 10:16 → MEDTELE 12:11
PROVIDERS: ADMIT Internal Medicine; ATTEND Pediatrics
DX: R07.9 Chest pain, unspecified (principal); I10 Essential (primary) hypertension; G47.33 Obstructive sleep apnea (adult) (pediatric); E78.5 Hyperlipidemia, unspecified; Z79.899 Other long term (current) drug therapy; R06.02 Shortness of breath
CPT/HCPCS: 36415; 71045; 80048; 80053; 80061; 81003; 82550; 82553; 83036; 83735; 83874; 83880; 84443; 84484; 85025; 85610; 85730; 87040; 87086; 87502; 93005; 94660; 96372; 99284; A9270-GY; G0378; J1644

== ENCOUNTER 2019-03-07 09:45 | Day surgery (SDC) | payer BC ==
--- NOTE | 2019-03-02 12:29 | HP ---
Amended report to enter cosigning physician. PREOPERATIVE HISTORY AND PHYSICAL: DATE OF SURGERY/ADMISSION: 03/07/19 DATE OF OFFICE VISIT/ENCOUNTER: 02/15/19 ATTENDING PHYSICIAN: Fani Rich MD* (dictated by NICHOLAS Marquez). PROCEDURE: Right long finger mass excision. HISTORY OF PRESENT ILLNESS: This is an 59-year-old female, who complains of a lump on the dorsal aspect of her right middle finger. It has been present for approximately 5 months. It only hurts when she hits it on something. She tried draining it once herself and some clear gel like fluid came out but then it recollected. She also has a deformity of her fingernail. There was no injury that she recalls. 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 She has elected to proceed with surgical excision of the mass. PAST MEDICAL HISTORY: 1. Hypertension. 2. Obstructive sleep apnea with CPAP. 3. Hypercholesterolemia. PAST SURGICAL HISTORY: 1. Bilateral carpal tunnel releases. 2. Left total knee arthroplasty. 3. x2. CURRENT MEDICATIONS: 1. Amitriptyline 25 mg q.h.s. 2. Avalide 300/12.5 mg daily. 3. Calcium magnesium 750 mg 300-300 mg 2 tabs daily. 4. Dymista 137-50 mcg/ACT one spray each nostril daily. 5. Fish oil 500 mg daily. 6. Loratadine 10 mg daily p.r.n. 7. Multivitamin daily. 8. Nexium 40 mg 2 tabs daily. 9. Rosuvastatin calcium 10 mg daily. 10. Vitamin D3 1000 units daily. ALLERGIES: No known drug allergies. FAMILY HISTORY: Diabetes, hypertension and cancer. SOCIAL HISTORY: The patient is a retired certified public accountant. She denies tobacco use, recreational drug use and she does not drink alcohol. REVIEW OF SYSTEMS: Negative for general, cephalic, cardiovascular, respiratory , GI, , other musculoskeletal, integumentary, endocrine, neurologic and hematologic symptoms. Infectious disease: Negative for MRSA, hepatitis C and HIV. PHYSICAL EXAMINATION GENERAL: A well-developed, well-nourished 59-year-old female, in no acute distress. VITAL SIGNS: Height 5 feet 5 inches, weight 220 pounds, pulse rate 70, blood pressure 142/82. HEENT: Normocephalic, atraumatic. Pupils are equal, round, and reactive to light and accommodation. Extraocular movements are intact. Throat is clear. NECK: Supple. No palpable lymph nodes. PULMONARY: Lungs are clear to auscultation bilaterally. No wheezes, rales or rhonchi. CARDIOVASCULAR: Regular rate and rhythm. S1, S2. No rubs or gallops. No edema. ABDOMEN: Positive bowel sounds. Soft, nontender. NEUROLOGICAL: Alert and oriented x3. Cranial nerves II through XII are intact. Sensation is intact to light touch. MUSCULOSKELETAL: On exam of her right hand, she has a cystic mass on the dorsal aspect of the middle finger between the DIP joint and the fingernail. There is significant deformity of the fingernail. She has good range of motion of the fingers. She can make a fist with mild limitation and flexion. She has full extension. Skin is intact. Neurovascular function is intact. IMAGING STUDIES: X-rays, AP lateral and oblique of the right hand showed diffuse degenerative changes including at the DIP joint of the middle finger. IMPRESSION: Right middle finger mucous cyst. PLAN: The patient is scheduled to undergo a right long finger mass excision with Dr. Rich on 03/07/19. She will return to the office 10 days postop for followup and suture removal. A prescription for Ultracet was e-scribed to her pharmacy for postoperative pain management. NICHOLAS MARQUEZ [id number]/[facility] #: [id number] TIM
[~2019-03-07 09:45] MED LIST: Acetaminophen TAB* 325 MG PO PRN; Buffered Lidocaine 1% SYRIN* 1 ML/SYRINGE INTRADERM ONE; Dexamethasone IV* 4 MG/ML 1 ML (4 MG) IV SLOW PU ONE; Famotidine IV* 10 MG/ML 2 ML (20 mg) IV ONE; HYDROcodone/ACETAMIN 5-325 MG* 1 TAB PO PRN; Ketorolac INJ* 30 MG/ML 1 ML VIAL IV PRN; Lactated Ringers 1000 ML Bag* 1,000 ML IV SCH; Naloxone* 0.4 MG/ML 1 ML VIAL IV PRN; Ondansetron INJ* 2 MG/ML VIAL IV PRN; fentaNYL* 50 MCG/ML 2 ML VIAL (100 MCG VIAL) IV PRN; oxyCODONE/Acetamin 5/325 MG* TAB PO PRN
[2019-03-07] MEDS ORDERED: Dexamethasone IV* 4 MG/ML 1 ML (4 MG) ONE (10:11)
[2019-03-07] MEDS ORDERED: Famotidine IV* 10 MG/ML 2 ML (20 mg) ONE (10:12)
[2019-03-07] MEDS ORDERED: fentaNYL* 50 MCG/ML 2 ML VIAL (100 MCG VIAL) ONE (11:16)
[2019-03-07] MEDS ORDERED: Midazolam* 1 MG/ML 2 ML VIAL (2 MG) ONE (11:16)
[2019-03-07] MEDS ORDERED: Lidocaine 2% PF * 5 ML VIAL ONE (11:16)
[2019-03-07] MEDS ORDERED: Propofol* 10 MG/ML 20 ML BTL ONE (11:16)
[2019-03-07] MEDS ORDERED: Lidocaine 1% INJ* 10 MG/ML 30 ML SDV ONE (11:36)
[2019-03-07 12:46] VITALS: BP 136/88
--- NOTE | 2019-03-07 14:34 | OP ---
CC: Dr. Rich OPERATIVE PROCEDURE: DATE OF OPERATION: 03/07/19 DATE OF : 60 SURGEON: Fani Rich MD BANQUET CHEF: NICHOLAS Marquez ANESTHESIA: Local MAC. PRE-OP DIAGNOSIS: Right long finger mass. POST-OP DIAGNOSIS: Right long finger mass. OPERATIVE PROCEDURE: Removal of right long finger mass. ESTIMATED BLOOD LOSS: Zero. TOURNIQUET TIME: About 15 minutes. INDICATION FOR PROCEDURE: Francie is a 59-year-old female who has a painful mass on the dorsal aspect of her right middle finger DIP joint. She presents for excision. Clinically, it is a ganglion cyst with an osteophyte from the DIP joint. DESCRIPTION OF PROCEDURE: The patient was brought to the operating room, was given a sedation anesth etic and a digital block with 10 cc of 1% plain lidocaine. The skin of her right hand and forearm wa s prepped and draped in the usual sterile fashion. A Tourni-Cot was used to exsanguinate the right m iddle finger and that was left up for the duration of the procedure. An H-shaped incision was made a long the dorsal aspect of the DIP joint and the dorsal skin flap was lifted up. The mass was removed in its entirety and sent for pathology. The extensor tendon was incised on each side of the joint a nd the underlying osteophyte was removed, was unable to remove the entire osteophyte; however, becaus e it was attached to the extensor tendon. There was a slight amount of extensor lag, so the patient was placed in a splint at the end of the procedure. The wound was irrigated and the skin edges reapp roximated with 4-0 nylon suture. The wound was dressed with Xeroform, 4x4, Webril, and Coban with an AlumaFoam splint. The patient tolerated the procedure well and was brought to the recovery room in good condition. [id number]/[facility] #: [id number]
== END 2019-03-07 13:00 | disposition home or self-care (01) ==
LOC: OREAST 09:45
PROVIDERS: ATTEND Orthopaedic Surgery
DX: M67.441 Ganglion, right hand (principal); I10 Essential (primary) hypertension; G47.33 Obstructive sleep apnea (adult) (pediatric); E78.00 Pure hypercholesterolemia, unspecified; E78.5 Hyperlipidemia, unspecified; K21.9 Gastro-esophageal reflux disease without esophagitis
CPT/HCPCS: 88304; J1100; J2250; J2704; J3010